=== PATIENT | female | born 1945 | race Caucasian/White ===

== ENCOUNTER → 2018-08-26 12:09 | Outpatient (CLI) | payer MEDICARE, SELFPAY ==
--- NOTE | 2018-08-26 | DI.MRI.S_ITS ---
PROCEDURE: MR LUMBAR SPINE WO CON INDICATIONS: Radiculopathy, lumbar region TECHNIQUE: Noncontrast sagittal T1 spin echo and T2 fast echo, sagittal STIR, axial T1 and T2 fast spin echo through the lumbar spine. In cases with scoliosis, additional coronal T2 fast spin echo may be performed. COMPARISON: [facility] [place], CR, XR LUMBAR SPINE 2 OR 3 VIEWS, 08/10/2018, 9:39. FINDINGS: Image quality: Excellent. Alignment and Curvature: Transitional lumbosacral vertebra is seen designated S1 for the purposes of this report. Please see the montage image for further clarification of the spinal segmental level scheme used in this report. Trace retrolisthesis of L2 on L3. Grade 1 anterolisthesis of L3 on L4. Grade 1 anterolisthesis of L5 on S1. Bone Marrow: Diffuse endplate spurring. Multilevel endplate degenerative signal change. No acute vertebral body compression fractures. Spinal Cord: Conus medullaris terminates at the L1 level. Visualized cord demonstrates normal signal and size. Paraspinous Soft Tissues: No paravertebral masses. There is diffuse subcutaneous edema seen from the level of L1-sacrum L1-L2: Broad-based predominantly right sided and right lateral disc bulge. There is bilateral facet arthropathy. Asymmetric effacement of the lateral recesses, right greater than left. Mild central canal narrowing. Severe left and moderate right foraminal stenoses. L2-L3: Bilateral facet arthropathy. Minimal broad-based posterior disc bulge. No definite central canal stenosis. There is asymmetric narrowing of the lateral recesses, left greater than right. This closely abuts the left L3 nerve root however no definite posterior displacement on axial images. Severe left and mild right foraminal stenoses. L3-L4: Broad-based posterior disc bulge and bilateral facet arthropathy. There is superimposed right paracentral disc extrusion with superior migration to just below the mid L3 vertebral body image 8 series 2, image 22 series 5. Severe central canal stenosis is present. There is also near complete effacement of the left and right lateral recesses. Mild right foraminal narrowing. Severe left foraminal stenosis. L4-L5: Broad-based posterior disc bulge and bilateral facet arthropathy. There is [id number] central canal stenosis Symmetric partial effacement of the left and right lateral recesses. Moderate left and severe right foraminal stenoses. L5-S1: Broad-based posterior disc bulge and bilateral facet arthropathy. Mild/moderate central canal stenosis. Bilateral symmetric narrowing of the lateral recesses, although left slightly greater than right (image 31 series 5) Moderate right foraminal stenosis with mild flattening deformity of the exiting nerve root in the cephalocaudad dimension. No definite left foraminal stenosis S1-S2: No definite canal or foraminal stenosis. IMPRESSION: Multilevel lumbar disc degeneration and facet arthropathy as detailed above with severe canal stenosis at L3-L4 (also complete effacement of the lateral recesses at this level.) Mild/moderate central canal narrowing at L4-L5 and L5-S1. Asymmetric L1-L2 subarticular narrowing, right greater left. Additionally, asymmetric subarticular narrowing seen at the L5-S1 level, although left slightly greater than right. Diffuse bilateral foraminal stenoses, most severe at L1-L2 (left), L2-L3 (left), L3-L4 (left), L4-L5 (right). Transitional lumbosacral vertebra as above. Please see discussion above and montage image for clarification of the spinal segmental level numbering scheme used in this report Dictated by: Mt Burton M.D. on 08/26/2018 at 13:40 Approved by: Mt Burton M.D. on 08/26/2018 at 14:04
== END ==
PROVIDERS: PCP Internal Medicine; Visit Provider Orthopaedic Surgery
DX: M51.16 Intervertebral disc disorders with radiculopathy, lumbar region (principal); M51.17 Intervertebral disc disorders with radiculopathy, lumbosacral region; M47.26 Other spondylosis with radiculopathy, lumbar region; M47.27 Other spondylosis with radiculopathy, lumbosacral region; M48.061 Spinal stenosis, lumbar region without neurogenic claudication; M48.07 Spinal stenosis, lumbosacral region
CPT/HCPCS: 72148